=== PATIENT | female | born 1945 | race Caucasian/White ===

== ENCOUNTER 2021-02-10 23:09 | Emergency (ER) | payer MEDICARE, OTHER ==
[~2021-02-10] VITALS: Ht 157.5 cm; Wt 80.0 kg
[2021-02-10] MEDS ORDERED: ALBUTEROL (0.083%) 2.5MG/3ML NEB HHN ONE (23:45)
[2021-02-11 00:02] LABS: BASOPHILS % 1.2 % (0.0-2.0); EOSINOPHILS % 1.2 % (0.0-5.0); HEMATOCRIT. 35.3 % (36.0-48.0); HEMOGLOBIN. 11.4 g/dL (12.0-16.0); LYMPHOCYTES % 9.3 % (20.0-50.0); MEAN CORPUSCULAR HEMOGLOBIN 31.8 pg (28.0-32.0); MEAN CORPUSCULAR VOLUME 98.3 fL (81.0-99.0); NEUTROPHILS % 83.3 % (40.0-76.0); PLATELET 201 x1000/uL (130-400); RED BLOOD CELL COUNT 3.59 mill/uL (4.2-5.4); RED CELL DISTRIBUTION WIDTH 15.8 % (11.6-14.6)
[2021-02-11 00:07] LABS: CHLORIDE 104 mEq/L (98-107)
[2021-02-11 03:29] VITALS: BP 169/70
== END 2021-02-11 03:33 | disposition home or self-care (01) ==
LOC: ER 23:09
DX: I13.11 Hypertensive heart and chronic kidney disease without heart failure, with stage 5 chronic kidney disease, or end stage renal disease (principal); E87.70 Fluid overload, unspecified; E11.649 Type 2 diabetes mellitus with hypoglycemia without coma; R53.1 Weakness; E11.22 Type 2 diabetes mellitus with diabetic chronic kidney disease; N18.6 End stage renal disease; E78.00 Pure hypercholesterolemia, unspecified; Z86.73 Personal history of transient ischemic attack (TIA), and cerebral infarction without residual deficits; Z20.822 Contact with and (suspected) exposure to COVID-19; Z95.1 Presence of aortocoronary bypass graft; Z99.2 Dependence on renal dialysis; Z79.4 Long term (current) use of insulin
CPT/HCPCS: 36415; 71045; 80053; 82962; 83880; 84484; 85025; 87426; 93005; 94640; 99285

== ENCOUNTER 2023-03-25 12:53 | Inpatient (IN) | payer OTHER, MEDICARE ==
[~2023-03-25] VITALS: Ht 157.5 cm; Wt 65.5 kg
[2023-03-25] MEDS ORDERED: MIDAZOLAM HCL 2 MG/2 ML VIAL IV ONE (14:00)
[2023-03-25 14:13] LABS: BASOPHILS % 0.8 % (0.0-2.0); EOSINOPHILS % 2.3 % (0.0-5.0); HEMATOCRIT. 39.5 % (36.0-48.0); HEMOGLOBIN. 12.3 g/dL (12.0-16.0); LYMPHOCYTES % 15.3 % (20.0-50.0); MEAN CORPUSCULAR HEMOGLOBIN 27.8 pg (28.0-32.0); MEAN CORPUSCULAR HGB CONC 31.2 g/dL (31.0-37.0); MEAN CORPUSCULAR VOLUME 89.2 fL (81.0-99.0); MEAN PLATELET VOLUME 8.7 fl (7.4-10.4); MONOCYTES % 6.5 % (2.0-8.0); NEUTROPHILS % 75.1 % (40.0-76.0); PLATELET 198 x1000/uL (130-400); RED BLOOD CELL COUNT 4.43 mill/uL (4.2-5.4); RED CELL DISTRIBUTION WIDTH 20.3 % (11.6-14.6); WHITE BLOOD COUNT 13.9 x1000/uL (4.5-11.0)
[2023-03-25 14:43] LABS: ALANINE AMINOTRANSFERASE 31 IU/L (10-49); ALBUMIN 3.7 g/dL (3.2-4.8); ASPARTATE AMINOTRANSFERASE 47 IU/L (<34); BILIRUBIN TOTAL 0.4 mg/dL (0.1-1.0); CALCIUM 8.4 mg/dL (8.7-10.4); CARBON DIOXIDE 30 mEq/L (21-32); CHLORIDE 101 mEq/L (98-107); CREATININE 2.9 mg/dL (0.6-1.0); GLUCOSE 157 mg/dL (70-105); PROTEIN TOTAL 6.9 g/dL (6.0-8.3); SODIUM 141 mEq/L (136-145); UREA NITROGEN BLOOD 19 mg/dL (9-23)
[2023-03-25 14:57] LABS: LACTIC ACID 4.1 mmol/L (0.4-2.0); TROPONIN I HIGH SENSITIVITY 44 ng/L (3.0-34)
[2023-03-25] MEDS ORDERED: VANCOMYCIN 1G PREMIX 200 ML IV SCH ×2 (15:30)
[2023-03-25] MEDS: CEFEPIME 2,000 MG in DEXT 5% WATER 100 ML IV SCH ×3 (16:10→17:15)
[2023-03-25 16:18] LABS: LACTIC ACID 2.2 mmol/L (0.4-2.0); TROPONIN I HIGH SENSITIVITY 46 ng/L (3.0-34)
[2023-03-25 16:42] LABS: BG BASE EXCESS -1.5 mmol/L (-2.0-2.0); BG CARBOXYHEMOGLOBIN 0.3 % (0.5-1.5); BG DEOXYHEMOGLOBIN 1.2 % (0.0-5.0); BG FRACTION INSPIRED OXYGEN 36; BG HCO3 ACT 22.6 mmol/L (22.0-26.0); BG OXYGEN SATURATION 98.8 % (92.0-98.5); BG OXYHEMOGLOBIN 98.5 % (94.0-97.0); BG PCO2 36.1 mmHg (35.0-45.0); BG PH 7.415 (7.350-7.450); BG PO2 139.3 mmHg (75.0-100.0); BG SAMPLE SITE RIGHT BRACHIAL; BG VENT MODE NASAL CANNULA
[2023-03-25] MEDS ORDERED: HYDRALAZINE 20MG/ML VIAL IV NR (16:45)
[2023-03-25] MEDS ORDERED: MAGNESIUM/ALUMINUM HYDROXIDE/SIMETHICONE 30ML UDC PO PRN (17:30)
[2023-03-25] MEDS ORDERED: CLONIDINE 0.1MG TABLET PO PRN (17:30)
[2023-03-25] MEDS ORDERED: AMLODIPINE 5MG TABLET PO SCH (17:30)
[2023-03-25] MEDS ORDERED: HYDRALAZINE 20MG/ML VIAL IV PRN (17:30)
[2023-03-25] MEDS ORDERED: ONDANSETRON HCL 4MG/2ML INJ IV PRN (17:30)
[2023-03-25] MEDS ORDERED: ACETAMINOPHEN 325MG TABLET PO PRN (17:30)
[2023-03-25] MEDS ORDERED: LISINOPRIL 10MG TABLET PO SCH (17:30)
[2023-03-25] MEDS ORDERED: PIPERACILLIN/TAZ 3.375G PREMIX 50 ML IV NR (18:00)
[2023-03-25 18:31] LABS: CHOLESTEROL 139 mg/dL (<200); HDL CHOLESTEROL 58 mg/dL (>65); IRON 71 ug/dL (50-170); LDL CHOLESTEROL 50 mg/dL (5-100); PHOSPHORUS 3.5 mg/dL (2.5-4.9); T4 FREE 1.27 ng/dL (0.89-1.76); THYROID STIMULATING HORMONE 6.36 uIU/mL (0.55-4.78); TOTAL IRON BINDING CAPACITY 167 ug/dl (250-425); TRIGLYCERIDE 101 mg/dL (0-150)
[2023-03-25 18:58] LABS: FOLIC ACID (FOLATE) SERUM > 20.00 ng/mL (>5.38); VITAMIN B12 SERUM 1503 pg/mL (211-911)
[2023-03-25 20:00] VITALS: BP 169/75; PULSE 93; RESP 18; TEMP 98; TEMP 98.5
[2023-03-25] MEDS ORDERED: ATORVASTATIN CALCIUM 20MG TABLET PO SCH (21:00)
[2023-03-25] MEDS: METOPROLOL TARTRATE 25MG TABLET PO SCH (21:00)
[2023-03-25 22:00] VITALS: BP 141/87; PULSE 94; RESP 22; TEMP 98
[2023-03-25] MEDS ORDERED: LORAZEPAM 4MG/ML VIAL IV NR (22:45)
[2023-03-26] VITALS (12 sets, daily range): BP systolic 110–175; BP diastolic 41–137; PULSE 69–104; RESP 16–30; TEMP 97.3–98.3; O2SAT 99
[2023-03-26 00:37] LABS: CREATINE KINASE 146 IU/L (34-145)
[2023-03-26 00:47] LABS: TROPONIN I HIGH SENSITIVITY 105 ng/L (3.0-34)
[2023-03-26] MEDS: FAMOTIDINE 20MG/2ML VIAL IV SCH (02:01)
[2023-03-26] MEDS ORDERED: PIPERACILLIN/TAZOBACTAM 3.375 G in DEXTROSE 5% WATER 50 ML IV SCH (06:00)
[2023-03-26 06:46] LABS: HEMATOCRIT. 37.1 % (36.0-48.0); HEMOGLOBIN. 11.8 g/dL (12.0-16.0); MEAN CORPUSCULAR HEMOGLOBIN 28.1 pg (28.0-32.0); MEAN CORPUSCULAR HGB CONC 31.9 g/dL (31.0-37.0); MEAN PLATELET VOLUME 9.1 fl (7.4-10.4); PLATELET 163 x1000/uL (130-400); RED BLOOD CELL COUNT 4.21 mill/uL (4.2-5.4); RED CELL DISTRIBUTION WIDTH 20.7 % (11.6-14.6); WHITE BLOOD COUNT 14.6 x1000/uL (4.5-11.0)
[2023-03-26 06:51] LABS: DIFFERENTIAL COMMENT 1
[2023-03-26 07:55] LABS: ALANINE AMINOTRANSFERASE 28 IU/L (10-49); ALBUMIN 3.7 g/dL (3.2-4.8); ASPARTATE AMINOTRANSFERASE 43 IU/L (<34); BILIRUBIN TOTAL 0.5 mg/dL (0.1-1.0); CALCIUM 8.7 mg/dL (8.7-10.4); CARBON DIOXIDE 25 mEq/L (21-32); CHLORIDE 100 mEq/L (98-107); CREATININE 3.7 mg/dL (0.6-1.0); GLUCOSE 255 mg/dL (70-105); PHOSPHORUS 4.3 mg/dL (2.5-4.9); POTASSIUM 4.5 mEq/L (3.5-5.1); PROTEIN TOTAL 6.4 g/dL (6.0-8.3); SODIUM 138 mEq/L (136-145); UREA NITROGEN BLOOD 29 mg/dL (9-23)
[2023-03-26 08:39] LABS: CREATINE KINASE 170 IU/L (34-145)
[2023-03-26 08:45] LABS: TROPONIN I HIGH SENSITIVITY 114 ng/L (3.0-34)
[2023-03-26] MEDS ORDERED: VANCOMYCIN 500MG PREMIX 100 ML IV NR (09:00)
[2023-03-26] MEDS: ASPIRIN 81MG TABLET PO SCH (09:25)
[2023-03-26] MEDS: METOPROLOL TARTRATE 25MG TABLET PO SCH (09:27)
[2023-03-26] MEDS: PIPERACILLIN/TAZOBACTAM 3.375 G in DEXTROSE 5% WATER 50 ML IV SCH ×2 (09:42→21:01)
[2023-03-26] MEDS ORDERED: HYDRALAZINE 20MG/ML VIAL IV PRN (11:45)
[2023-03-26] MEDS ORDERED: DEXTROSE 50% WATER 50ML SYRINGE IV PRN (12:00)
[2023-03-26] MEDS: BLOOD SUGAR DIAGNOSTIC STRIP TEST SCH ×2 (12:30→21:00)
[2023-03-26 13:19] LABS: HEPATITIS A AB IGM NEGATIVE (Negative); HEPATITIS B CORE AB IGM NEGATIVE (Negative); HEPATITIS B SURFACE ANTIGEN NEGATIVE (Negative); HEPATITIS C AB NON REACTIVE (Neg) (Negative)
[2023-03-26] MEDS: INSULIN LISPRO 100 UNITS/ML SUBCUT SCH ×3 (14:56→21:02)
[2023-03-26 16:59] LABS: PLATELET ESTIMATE NORMAL
[2023-03-26 17:01] LABS: ANISOCYTOSIS 2+
[2023-03-26] MEDS ORDERED: IPRATROPIUM/ALBUTEROL 0.5-3(2.5)MG/3ML NEB HHN PRN (17:30)
[2023-03-26] MEDS ORDERED: LORAZEPAM 4MG/ML VIAL ONE (18:25)
[2023-03-26] MEDS ORDERED: LORAZEPAM 4MG/ML VIAL IV NR (18:45)
[2023-03-26] MEDS: IPRATROPIUM/ALBUTEROL 0.5-3(2.5)MG/3ML NEB HHN SCH (20:49)
[2023-03-26] MEDS ORDERED: METOPROLOL TARTRATE 50MG TABLET NG SCH (21:00)
[2023-03-26] MEDS ORDERED: ATORVASTATIN CALCIUM 20MG TABLET PO SCH (21:00)
[2023-03-27] VITALS (24 sets, daily range): BP systolic 109–156; BP diastolic 38–92; PULSE 64–120; RESP 14–25; TEMP 97.4–98.8; O2SAT 93–99
[2023-03-27] MEDS: IPRATROPIUM/ALBUTEROL 0.5-3(2.5)MG/3ML NEB HHN SCH ×3 (02:17→21:52)
[2023-03-27 07:28] LABS: HEMATOCRIT. 33.8 % (36.0-48.0); HEMOGLOBIN. 10.7 g/dL (12.0-16.0); MEAN CORPUSCULAR HEMOGLOBIN 27.8 pg (28.0-32.0); MEAN CORPUSCULAR HGB CONC 31.7 g/dL (31.0-37.0); MEAN CORPUSCULAR VOLUME 87.7 fL (81.0-99.0); MEAN PLATELET VOLUME 9.2 fl (7.4-10.4); PLATELET 151 x1000/uL (130-400); RED BLOOD CELL COUNT 3.85 mill/uL (4.2-5.4); RED CELL DISTRIBUTION WIDTH 21.5 % (11.6-14.6); WHITE BLOOD COUNT 13.5 x1000/uL (4.5-11.0)
[2023-03-27] MEDS: BLOOD SUGAR DIAGNOSTIC STRIP TEST SCH ×4 (07:30→20:48)
[2023-03-27 07:43] LABS: DIFFERENTIAL COMMENT 1
[2023-03-27] MEDS: INSULIN LISPRO 100 UNITS/ML SUBCUT SCH ×4 (08:00→20:49)
[2023-03-27 08:14] LABS: ALANINE AMINOTRANSFERASE 23 IU/L (10-49); ALBUMIN 3.3 g/dL (3.2-4.8); ASPARTATE AMINOTRANSFERASE 39 IU/L (<34); BILIRUBIN TOTAL 0.5 mg/dL (0.1-1.0); CALCIUM 8.5 mg/dL (8.7-10.4); CARBON DIOXIDE 22 mEq/L (21-32); CHLORIDE 102 mEq/L (98-107); GLUCOSE 160 mg/dL (70-105); PHOSPHORUS 5.1 mg/dL (2.5-4.9); POTASSIUM 4.4 mEq/L (3.5-5.1); PROTEIN TOTAL 5.7 g/dL (6.0-8.3); SODIUM 138 mEq/L (136-145); UREA NITROGEN BLOOD 40 mg/dL (9-23)
[2023-03-27 08:23] LABS: CREATININE 5.5 mg/dL (0.6-1.0); TROPONIN I HIGH SENSITIVITY 151 ng/L (3.0-34)
[2023-03-27] MEDS: AMLODIPINE 5MG TABLET PO SCH ×2 (09:00→17:00)
[2023-03-27] MEDS: METOPROLOL TARTRATE 25MG TABLET NG SCH ×2 (09:00→20:48)
[2023-03-27] MEDS: ASPIRIN 81MG TABLET PO SCH (09:00)
[2023-03-27] MEDS ORDERED: LISINOPRIL 20MG TABLET PO SCH (09:00)
[2023-03-27] MEDS ORDERED: AMLODIPINE 10MG TABLET PO SCH (09:00)
[2023-03-27] MEDS: PIPERACILLIN/TAZOBACTAM 3.375 G in DEXTROSE 5% WATER 50 ML IV SCH ×2 (11:45→20:48)
[2023-03-27 18:01] LABS: ANISOCYTOSIS 2+; PLATELET ESTIMATE NORMAL
[2023-03-27] MEDS ORDERED: ENOXAPARIN 30MG/0.3ML SYR SUBCUT SCH (20:00)
[2023-03-27] MEDS: FAMOTIDINE 20MG/2ML VIAL IV SCH (20:48)
[2023-03-27] MEDS ORDERED: ATORVASTATIN CALCIUM 40MG TABLET PO SCH (21:00)
== END 2023-03-28 07:55 | disposition short-term general hospital (02) | DRG 64 ==
LOC: ER 13:20 → 5EST 15:33 → EDBEDREQ 15:36
PROVIDERS: ADMIT Internal Medicine; ATTEND Internal Medicine
PROC: 5A1D70Z Performance of Urinary Filtration, Intermittent, Less than 6 Hours Per Day (ICD-10-PCS; principal; 2023-03-27)
DX: I63.511 Cerebral infarction due to unspecified occlusion or stenosis of right middle cerebral artery (principal); G93.41 Metabolic encephalopathy; I21.4 Non-ST elevation (NSTEMI) myocardial infarction; J96.00 Acute respiratory failure, unspecified whether with hypoxia or hypercapnia; N18.6 End stage renal disease; E87.20 Acidosis, unspecified; G81.94 Hemiplegia, unspecified affecting left nondominant side; I12.0 Hypertensive chronic kidney disease with stage 5 chronic kidney disease or end stage renal disease; R47.01 Aphasia; E78.00 Pure hypercholesterolemia, unspecified; Z66 Do not resuscitate; F03.90 Unspecified dementia, unspecified severity, without behavioral disturbance, psychotic disturbance, mood disturbance, and anxiety; E11.22 Type 2 diabetes mellitus with diabetic chronic kidney disease; E11.65 Type 2 diabetes mellitus with hyperglycemia; I16.0 Hypertensive urgency; I25.10 Atherosclerotic heart disease of native coronary artery without angina pectoris; I45.10 Unspecified right bundle-branch block; R47.1 Dysarthria and anarthria; Z79.82 Long term (current) use of aspirin; Z86.73 Personal history of transient ischemic attack (TIA), and cerebral infarction without residual deficits; Z95.1 Presence of aortocoronary bypass graft; Z99.2 Dependence on renal dialysis; Z79.899 Other long term (current) drug therapy; Z82.49 Family history of ischemic heart disease and other diseases of the circulatory system; Z83.3 Family history of diabetes mellitus
CPT/HCPCS: 36415; 36600; 70490; 70544; 70547; 70551; 71045; 71250; 80053; 80061; 82330; 82375; 82550; 82607; 82746; 82805; 82962; 83036; 83540; 83550; 83605; 83735; 83880; 84100; 84145; 84439; 84443; 84484; 85025; 85379; 86705; 86709; 87340; 90935; 93005; 93306; 93970; 94640; 99291; J0360; J0692; J1650; J1815; J2060; J2250; J2543; J3370; J3490; J7060